=== PATIENT | male | born 1940 | race Caucasian/White ===

== ENCOUNTER 2020-11-17 15:45 | Emergency (ER) | payer OTHER ==
[~2020-11-17] VITALS: Ht 172.7 cm; Wt 74.8 kg
[2020-11-17 16:37] LABS: ABSOLUTE NEUTROPHILS 3.5 thou/uL (1.4-8.2); BASOPHILS 0.9 % (0.0-2.0); EOSINOPHILS 3.3 % (0.0-3.0); HEMATOCRIT 43.8 % (42.0-52.0); HEMOGLOBIN 14.1 gm/dL (14.0-18.0); LYMPHOCYTES 43.3 % (24.0-44.0); MCH 29.3 pg (26.0-34.0); MCHC 32.3 g/dL (28.0-37.0); MCV 90.9 fL (80.0-100.0); MONOCYTES 8.9 % (1.0-8.0); PLATELET COUNT 256 thou/uL (150-400); POLYS 43.6 % (36.0-66.0); RBC 4.82 mil/uL (4.50-6.00); RDW 14.5 % (10.5-14.5)
[2020-11-17 16:49] LABS: ALBUMIN 2.9 g/dL (3.4-5.0); CALCIUM 9.5 mg/dL (8.5-10.1); CREATININE 1.4 mg/dL (0.7-1.3); POTASSIUM 4.3 mmol/L (3.5-5.1); TOTAL BILIRUBIN 0.2 mg/dL (0.2-1.0); TOTAL PROTEIN 7.1 g/dL (6.4-8.2)
[2020-11-17 17:17] LABS: URINE BILIRUBIN NEGATIVE (Negative); URINE BLOOD 1+ (Negative); URINE CLARITY CLEAR; URINE COLOR YELLOW; URINE GLUCOSE-RANDOM* NEGATIVE (Negative); URINE KETONES NEGATIVE (Negative); URINE LEUKOCYTES-REFLEX NEGATIVE (Negative); URINE NITRITE-REFLEX NEGATIVE (Negative); URINE PROTEIN (DIPSTICK) NEGATIVE (Negative); URINE UROBILINOGEN 0.2 E.U./dl (0.2-1.0)
[2020-11-17 17:28] LABS: SQUAMOUS 4-10 Moderate /LPF (0-3)
[2020-11-17 17:31] LABS: RENAL EPITHELIAL CELLS 4-10 Moderate /LPF (None Seen)
[2020-11-17 17:32] LABS: URINE RBC 3-10 Few /HPF (0-2)
[2020-11-17 17:33] LABS: BACTERIA-REFLEX 1-9 Few /HPF (None Seen); CASTS None Seen /LPF (None Seen); CRYSTALS None Seen /LPF (None Seen); URINE WBC-REFLEX 6-15 Few /HPF (0-5)
[2020-11-17] MEDS ORDERED: BUSPIRONE HCL10 MG PO (18:16)
[2020-11-17] MEDS ORDERED: ATIVAN0.5 M1 PO (18:18)
[2020-11-17] MEDS ORDERED: TYLENOL EXTRA500 MG PO (18:19)
[2020-11-17] MEDS ORDERED: SENNA8.6 MG PO (18:19)
[2020-11-17] MEDS ORDERED: MUCINEX600 MG PO (18:19)
[2020-11-17] MEDS ORDERED: ASA81BEC PO (18:20)
[2020-11-17] MEDS ORDERED: ATENOLOL 25 MG25 M1 PO (18:20)
[2020-11-17] MEDS ORDERED: LIPITOR40 MG PO (18:20)
[2020-11-17] MEDS ORDERED: COMBIVENT INH (18:26)
[2020-11-17] MEDS ORDERED: CEFTRIAXONE40 MG/M1 IM (18:27)
[2020-11-17] MEDS ORDERED: LORAZEPAM 2MG TA2 M1 PO (18:28)
[2020-11-17 19:41] VITALS: BP 198/93
--- NOTE | 2020-11-18 07:27 | EKG ---
[address] [place] [address] ELECTROCARDIOGRAM REPORT Name: LUIS CARLOS MUÑOZD Room #: DEP Papi#: [id number] Admission: 11/17/20 Attend Phys: Discharge: 11/17/20 Date of : 38 Report #: [id number] [facility] Test Date: 2020-11-17 Test Time: 16:23:41 Pat Name: LALA MUÑOZ Department: Room: Gender: Shells Inspector: KATIA : 1940 Requested By: Kody Harman Order Number: [id number] MD: Raman Roberts Measurements Intervals [place] Rate: 61 P: 41 FL: 113 QRS: 45 QRSD: 83 T: 34 QT: 432 QTc: 435 Interpretive Statements Sinus rhythm Borderline short FL interval No previous ECG available for comparison Electronically Signed On 11-18-2020 7:27:08 CDT by Raman Roberts [email or web address] <ELECTRONICALLY SIGNED> By: Raman Roberts MD, [facility] 11/18/20 0727 1623 1623 Raman Roberts MD, FACC /EPI
== END 2020-11-17 19:48 ==
LOC: ER 15:45
PROVIDERS: Emergency Medicine
DX: R45.1 Restlessness and agitation (principal); I10 Essential (primary) hypertension; E78.5 Hyperlipidemia, unspecified; Z79.82 Long term (current) use of aspirin; Z79.899 Other long term (current) drug therapy; Z20.822 Contact with and (suspected) exposure to COVID-19

== ENCOUNTER 2020-11-17 19:58 | Inpatient (IN) | payer OTHER, MEDICARE ==
[~2020-11-17] VITALS: Ht 180.3 cm; Wt 66.8 kg
[~2020-11-17 19:58] MED LIST: ASA81BEC PO; ATENOLOL 25 MG25 M1 PO; ATIVAN0.5 M1 PO; BUSPIRONE HCL10 MG PO; CEFTRIAXONE40 MG/M1 IM; COMBIVENT INH; LIPITOR40 MG PO; LORAZEPAM 2MG TA2 M1 PO; MUCINEX600 MG PO; SENNA8.6 MG PO; TYLENOL EXTRA500 MG PO
[2020-11-17 20:23] VITALS: BP 130/75
--- NOTE | 2020-11-17 20:25 | NUR ---
ARRIVES TO FLOOR AT 2015 AN 79 YEAR OLD MALE FROM [facility]. ARRIVES TO FLOOR FROM ER VIA CART-HAD BEEN INCONTINENT OF LARGE AMOUNT URINE AND WAS COMBATIVE WITH RN AND CONVEYOR MECHANIC DURING INCONTINENT CARE-REFUSES TO ASSIST WITH TRANSFER TO BED YELLING LOUDLY "NO IM LEAVING" WEIGHT OBTAINED. VS OBTAINED AND WNL. POSITIONED FOR COMFORT IN BED AND BED EXIT ALARM INITATED. SON QUINTIN CONTACTED AND CONSENT TO TREAT OBTAINED. REFUSES OFFERS OF FOOD/FLUIDS. 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 PLACED ON [place] PRECAUTIONS. ADRYAN KOO CONTACTED AND ADMISSION ORDERS OBTAINED
--- NOTE | 2020-11-18 03:56 | NUR ---
PATIENT COMBATIVE AND SECURITY CALLED. ORDER GIVEN FOR GEODON 15MG IM. PT REFUSED PO MEDS AND THREW THEM AT NURSE. PATIENT HAS SMALL SKIN TEAR ON RIGHT FOREARM THAT WAS CLEANED AND COVERED. PATIENT WITH EXPRESSIVE APHASIA. PT KEEPS MOVING LAP RANI UP TOWARDS NECK. REMOVED LAP RANI AND CHAIR RECLINED. PT WITH LESS AGITATION. PATIENT ASSISTED TO BED AND BECAME RESTLESS AND HAD TAKEN OFF CLOTHES. LORAZEPAM 0.25MG PO AND TYLENOL 650MG PO FOR GENERALIZED DISCOMFORT CRUSHED AND PLACED IN PUDDING. PATIENT TOOK THIS WITHOUT ISSUE. HE SETTLED DOWN WITHIN AN HOUR AND BACK TO SLEEP. BED IN LOW POSITION AND BED ALARM IS ON. ROUTINE MONITORING
[2020-11-18 07:55] VITALS: BP 138/76
--- NOTE | 2020-11-18 09:23 | NUR ---
PATIENT APPROACHED WITH MORNING MEDICATIONS CRUSHED IN APPLESAUCE. ATTEMPTED SEVERAL TIMES AND PUSHED SPOON AWAY. WILL CONTINUE TO ENCOURAGE COMPLIANCE.
[2020-11-18 19:25] VITALS: BP 153/73
--- NOTE | 2020-11-19 04:48 | NUR ---
11-18-20 CARE TRANSFERRED 1900. PT AAOX1, VSS, RR EVEN AND NONLABORED ON RA. PT REMAINED CLAM AND COOPERATIVE THROUGHOUT NURSING ASSESSMENT, PT HAS DIFFICULTIES ARTICULATING THOUGHTS INTO WORDS R/T CVA. ZERO S/S OF ACUTE DISTRESS NOTED, PT WILL CONTINUE TO BE MONITOR PER [facility] PROTOCOL.
[2020-11-19 06:22] LABS: CALCIUM 9.7 mg/dL (8.5-10.1); CREATININE 1.3 mg/dL (0.7-1.3)
[2020-11-19 09:13] VITALS: BP 122/60
--- NOTE | 2020-11-19 11:20 | NUR ---
Nutrition: pt admitted from [place] with agitation, dementia. passed last year. Feeds self with left hand due to right hand contracture. PO documented as 70-80% of meals so far on unit. No weight hx. BMI WNL. Noted skin assessment pending today. Hx pressure ulcer to buttock possibly resolved but suspected active ankle wound per team meeting. Depending on stage, can offer supplements. Otherwise consider low nutrition risk.
--- NOTE | 2020-11-19 15:56 | NUR ---
YAMILE contacted pt's son Dalton and obtained hx from him about pt. He said pt's 06/2020 and since then pt has increased in his aggressive behaviors. He said that pt has been experiencing depression. He also mentioned that although pt had a stroke 21 years ago, his speech was not as difficult to understand for a long time as it is now. YAMILE sent to Dalton a [facility] welcome email to . YAMILE team will continue to follow pt during his stay on this unit.
--- NOTE | 2020-11-19 16:48 | NUR ---
0700 ASSUMED CARE OF PATIENT, PATIENT IN GENEVA CHAIR AT THAT TIME. PATIENT NOTED WITH EYES CLOSED. PATIENT ASSISTED WITH BREAKFAST. MEDICATIONS TAKEN CRUSHED IN APPLESAUCE WITHOUT DIFFICULTY. LS CLEAR, BS ACTIVE. PATIENT CONFUSED. ORIENTED TO SELF. PATIENT ASSIST X2 WITH TRANSFERS. 1500 SKIN ASSESSMENT COMPLETED PATIENT LYING IN BED PATIENT NOTED WITH COCCYX WOUND OPEN TO AIR. WOUND MEASURED 0.3 CM X 1 CM WITH WHITE TISSUE AROUND OPENING AND PINK IN THE BED OF THE WOUND. Z-GURAD APPLIED AND A 3X3 OPTIFOAM BORDERED DRESSING APPLIED. OLD SCARS NOTED TO RIGHT THIGH. SCAB TO LEFT WRIST AND RIGHT ELBOW. WOUND #2 RIGHT ANKLE 0.7 CM X0.5 CM ULCER NOTED. REDNESS AROUND THE WOUND WITH WHITE EDGES TO OPENING. OLD DRESSING NOTED WITH BROWNISH YELLOW DISCHARGE MODERATE AMT. Z-GUARD APPLIED TO WOUND AND COVERED WITH OPTIFOAM BORDERED DRESSING. BRACE TO RIGHT LEG REAPPLIED PATIENT REPOSITIONED IN BED WITH HOB ELEVATED AND FOOT OF BED ELEVATED. PATIENT RESTING IN BED. BED ALARMED: AT 1620, PATIENT AWAKE AND ATTEMPTING TO GET OUT OF BED. PATIENT TRANSFERED TO [facility] AND TO DAYROOM AT THAT TIME. PATIENT CONFUSED AND SPEAKS IN LOW VOICE, DIFFICULTY UNDERSTANDING AT TIMES. WILL CONTINUE TO OBSERVE.
[2020-11-19 19:19] VITALS: BP 147/59
--- NOTE | 2020-11-20 02:04 | NUR ---
PT ASSESSMENT COMPLETED AND VSS. MEDS GIVEN ORDERED CRUSHED IN APPLESAUSE. WELL TOLERATED. BRACE AND DRESSINGS TO R LOWER LEG IN PLACE. PT CALM AND PLEASANT THIS EVENING. PT IN CHAIR EARLY DURING SHIFT. NOW PT SLEEPING IN BED WITH ALARM ON. WILL CONTINUE TO MONITOR FREQUENTLY.
[2020-11-20 09:38] VITALS: BP 199/91
[2020-11-20 10:09] VITALS: BP 199/91
--- NOTE | 2020-11-20 13:29 | EKG ---
[address] [address] ELECTROCARDIOGRAM REPORT Name: LALA MUÑOZ Room #: [facility] ADM IN M.R.#: [id number] Admission: 11/17/20 Attend Phys: Serafin Lyn DO Discharge: Date of : 38 Report #: [id number] [facility] Test Date: 2020-11-20 Test Time: 13:22:22 Pat Name: LALA MUÑOZ Department: Room: [facility] Gender: M Visual Arts Teacher: SANA : 1940 Requested By: Cristina Haywood Order Number: [id number] MD: Raman Roberts Measurements Intervals [place] Rate: 72 P: 77 CA: 123 QRS: 15 QRSD: 82 T: 22 QT: 421 QTc: 461 Interpretive Statements Sinus rhythm Compared to ECG 11/17/2020 16:23:41 No significant changes Electronically Signed On 11-20-2020 13:29:31 CDT by Raman Roberts [email or web address] <ELECTRONICALLY SIGNED> By: Raman Roberts MD, [facility] 11/20/20 1329 1322 1322 Raman Roberts MD, FACC /EPI
--- NOTE | 2020-11-20 13:55 | NUR ---
1350 RESUMMED CARE FROM OVERNIGHT SHIFT THIS AM, PATIENT IN DAY ROOM SITTING IN GENEVA CHAIR. PATIENT ATE BREAKFAST WHEN TRYING TO GIVE PATIENT HIS MEDICATION HE SLAPPED IT OUT OF MY HAND. I CALLED DR DIAZ TO LET HER KNOW SHE TOLD ME TO TRY LATER AND TRY AGAIN. I GAVE PATIENTS HALDOL CRUSHED IN ICE CREAM AND PATIENT GOT CLONODINE PATCH 0.1 MG FOR HTN. PATIENTS ADBOMEN SOFT BOWEL SOUNDS PRESENT PATIENTS LUNGS CLEAR. PATIENT ALERT ORIENTED TO SELF ONLY PATIENT IS UNABLE TO TELL ME ABOUT SI/HI/AH/VH AT PRESENT. PATIENT HAS DEMENTIA WITH BEHAVIORS, I CHANGED PATIENTS WOUND DRESSING. WILL CONTINUE TO MONITOR PATIENT FOR SAFETY AND BEHAVIORS.
[2020-11-20 20:39] VITALS: BP 142/78
--- NOTE | 2020-11-20 22:04 | NUR ---
2203 RESUMMED CARE FROM DAY SHIFT THIS EVENING, PATIENT IS ALERT ORIENTED TO SELF. PATIENT UNABLE TO TELL ME ABOUT SI/HI/AH/VH AT PRESENT DUE TO DEMENTIA. PATIENT CHANGED AT BEGINNING OF SHIFT POSITION SWITCHED TO BED WITH LEGS SEMI FOWLERS POSITION. PATIENTS ABDOMEN SOFT BOWEL SOUNDS PRESENT PATIENTS LUNGS CLEAR. PATIENT TOOK MEDICATION CRUSHED IN APPLESAUCE, PATIENT TRIED TO CLIMB OUT OF BED. WE BROUGHT PATIENT BACK TO DAYROOM FOR CLOSE OBSERVATION, PATIENT HAS A WAFFLE CUSHION FOR COMFORT. WILL CONTINUE TO MONITOR PATIENT FOR SAFETY AND BEHAVIORS.
[2020-11-21 08:30] VITALS: BP 185/97
--- NOTE | 2020-11-21 09:19 | NUR ---
PT SITTING IN DINING ROOM. PT TOOK MEDS THIS AM WHOLE WITH PUDDING. PT SMILES AND SAYS ONE WORDS TO NURSE. PT HAS RT HAND CONTRACTED AND RT LE HAS AFO WHEN UP AND SHOES FOR AMBULATION. PT DOES FEED SELF AND TOLERATES THIN LIQUIDS.
[2020-11-21 10:11] VITALS: BP 185/97
--- NOTE | 2020-11-21 14:00 | NUR ---
YAMILE faxed updates to [facility] Sen. Chambers at [phone]. YAMILE also contacted Christine to arrange d/c. No answer. YAMILE left a msg. YAMILE team will continue to follow pt during her stay on this unit.
--- NOTE | 2020-11-21 19:26 | NUR ---
PT HAS HAD A GOOD DAY TODAY. NO BEHAVIORS NOTED FROM PT. PT HAS FED SELF WITH ASSIST WITH TRAY. PT TOOK MEDS WHOLE IN PUDDING WITHOUT ANY ISSUES. PT RESTED ON AND OFF IN GENEVA-CHAIR AND ALSO WORKED WITH THERAPY.
[2020-11-21 19:35] VITALS: BP 155/77
--- NOTE | 2020-11-22 04:50 | NUR ---
Pt. rested quietly during the night when checked on. Pt. very hesitant to take his po meds at hs. He would draw his fist up and try to knock meds away that were in pudding. After a few more trys he did take them. He has rested quietly during the night.
[2020-11-22 09:12] VITALS: BP 169/88
[2020-11-22 10:44] LABS: URINE BILIRUBIN NEGATIVE (Negative); URINE BLOOD NEGATIVE (Negative); URINE CLARITY CLEAR; URINE COLOR YELLOW; URINE GLUCOSE-RANDOM* NEGATIVE (Negative); URINE KETONES NEGATIVE (Negative); URINE LEUKOCYTES-REFLEX NEGATIVE (Negative); URINE NITRITE-REFLEX NEGATIVE (Negative); URINE PROTEIN (DIPSTICK) NEGATIVE (Negative); URINE SPECIFIC GRAVITY >= 1.030 (1.005-1.035); URINE UROBILINOGEN 0.2 E.U./dl (0.2-1.0)
[2020-11-22 11:07] VITALS: BP 169/88
[2020-11-22 12:37] LABS: ABSOLUTE NEUTROPHILS 5.7 thou/uL (1.4-8.2); BASOPHILS 0.8 % (0.0-2.0); EOSINOPHILS 3.3 % (0.0-3.0); HEMOGLOBIN 13.9 gm/dL (14.0-18.0); LYMPHOCYTES 33.9 % (24.0-44.0); MCH 29.6 pg (26.0-34.0); MCHC 32.4 g/dL (28.0-37.0); MCV 91.4 fL (80.0-100.0); MONOCYTES 8.6 % (1.0-8.0); PLATELET COUNT 286 thou/uL (150-400); POLYS 53.4 % (36.0-66.0); RDW 14.3 % (10.5-14.5); WBC 10.6 thou/uL (4.0-11.0)
--- NOTE | 2020-11-22 12:47 | NUR ---
1246 RESUMMED CARE FROM OVERNIGHT SHIFT THIS AM, PATIENT IN DAYROOM QUIET. PATIENT IS ALERT ORIENTED TO SELF PATIENT UNABLE TO TELL MED ABOUT SI/HI/AH/VH AT PRESENT. PATIENT HAD STROKE SEVERAL YEARS AGO AND HAS DEMENTIA AND HAS LOST SOME OF HIS COGNITIVE SKILLS. PATIENTS ABDOMEN SOFT BOWEL SOUNDS PRESENT PATIENTS LUNGS CLEAR. DR CONNOR CAME AND ORDERED BLADDER SCAN AND STRAIGHT CATH FOR UA/UC AND SOME BLOOD WORK. PATIENT WAS COOPERATIVE FOR THE PROCEDURE HE HAD 250 CC OF URINE IN BLADDER. PATIENT IS QUIET AND LYING IN GENEVA CHAIR WILL CONTINUE TO MONITOR PATIENT FOR SAFETY AND BEHAVIORS.
[2020-11-22 12:52] LABS: CALCIUM 9.9 mg/dL (8.5-10.1); CREATININE 1.3 mg/dL (0.7-1.3); POTASSIUM 4.1 mmol/L (3.5-5.1)
--- NOTE | 2020-11-22 13:48 | NUR ---
DURING WEEK ONE ADMISSION, LALA HAS NOT BEEN ABLE TO BE ACTIVE HE WOULD LIKE DUE TO PREVIOUS STROKE. HOWEVER PATIENT IS ABLE TO OBSERVED AND LISTEN TO ALL RECREATION THERAPY GROUPS WHEN PRESENTED TO HIM. THERE HAS BEEN 1:1 ATTEMPTS OF ENGAGEMENT FOR PATIENT TO IMPROVE ANY INTERACTION. PT DOES APPEAR TO BE CALM AND SMILES WHEN HE IS SHOWING EMOTION OF EXCITEMENT.
[2020-11-22 20:07] VITALS: BP 167/76
[2020-11-22 20:20] VITALS: BP 167/76
--- NOTE | 2020-11-23 03:00 | NUR ---
11-22-20 CARE TRANSFERRED 1899. PT AAOX1, VSS, RR EVEN AND NONLABORED ON RA. NO S/S OF PAIN AND NO SI/HI BEHAVIORS OBSERVED. PT EXPRESSIVE APHASIA, HAS BEEN CALM AND COOPERATIVE. ATE 100% HS ICE CREAM CUP. PT HAS BEEN REPOSITION PER HCP ORDERS. HEEL BOOTS HAVE NOT ARRIVED FROM C[facility]TRAL [facility], PT FEET HAVE BEEN POSITION ON PILLOW. ZERO S/S OF ACUTE DISTRESS NOTED, PT WILL CONTINUE TO BE MONITOR PER [facility] PROTOCOL.
[2020-11-23 08:21] VITALS: BP 144/68
--- NOTE | 2020-11-23 16:14 | NUR ---
0700 ASSUMED CARE OF PATIENT, PATIENT IN BED AT THAT TIME. PATIENT TO DAYROOM VIA GENEVA CHAIR X 2 ASSIST. PATIENT QUIET AND CALM. FEW BITES OF BREAKFAST WITH ASSIST. MEDICATIONS TAKEN CRUSHED IN APPLESAUCE. ATE ALL OF THE APPLESAUCE. PATIENT MUMBLES WORDS, DIFFICULTY UNDERSTANDING AT TIMES. SLEEPS OFF AND ON IN CHAIR. BLADDER SCAN COMPLETED AT 1500 WITH RESULTS OF 470 ML. 1530 PATIENT TRANSFERED TO BED X 2 ASSIST. STRAIGHT CATH DONE WITH 850ML OF SLIGHTLY DARK YELLOW URINE. PATIENT TOLERATED WELL. WOUND TO COCCYX CLEANED WITH NS AND Z-GUARD APPLIED WITH OPTIFORM BORDERED DRESSING APPLIED. WOUND TO RIGHT ANCKLE CLEANED WITH NS, Z-GUARD APPLIED AND OPTIFORM BORDERED DRESSING APPLIED. PATIENT POSITIONED TO LEFT SIDE. PATIENT RESTING WITH EYES CLOSED. BED ALARM ON, SIDE RAILS UP. WILL CONTINUE TO OBSERVE.
[2020-11-23 19:29] VITALS: BP 132/85
[2020-11-23 20:20] VITALS: BP 132/85
--- NOTE | 2020-11-24 02:20 | NUR ---
PATIENT WAS SITTING UP IN DINING ROOM IN GENEVA CHAIR WITH CHAIR ALARM UNDER HIM UP TO TIME HE WENT TO BED. HE TOOK HIS MEDS CRUSHED IN PUDDING. PATIENT DID DRINK ICE WATER OF 240CC. HE HAS RIGHT SIDE HEMIPARESIS. RIGHT HAND STAYES CLUTCHED POSITION. PATIENT WITH C/O PAIN IN RIGHT KNEE THIS EVENING. TYLENOL 650MG PO GIVEN WITH HS MEDS. PATIENT IS ASSIST X 2. HE HAS BEEN CALM AND COOPERATIVE. HE IS INCONTINENT. PATIENT IS BLADDER SCANNED Q 8 HOURS. PT SCANNED AT 2300 AND HAD 209CC IN BLADDER. HE WAS NOT CATHED AT THIS TIME D/T NOT TO CATH UNLESS ABOVE 300CC. PATIENT WAS ABLE TO USE SPOON TO FEED HIMSELF PUDDING TONIGHT. I HAD TO PUT THE PUDDING ON THE SPOON AND THEN PATIENT WOULD TAKE SPOON AND FEED SELF. DRESSING ON LEFT ANKLE DRY AND INTACT. BARRIER CREAM WITH INCONTINENCE CARES. PATIENT TO BED AT 2300. BED IN LOW POSITION AND BED ALARM ON. HE SEEMS TO BE A/0X2-3. HE DOES HAVE EXPRESSIVE APHASIA. ROUTINE ROUNDS TO ASSESS SAFETY AND STATUS OF PATIENT.
--- NOTE | 2020-11-24 05:00 | NUR ---
PATIENT WAS DRESSED AND BROUGHT TO DINING ROOM SINCE HE WAS RESTLESS AND READY TO GET UP FOR THE DAY. PATIENT GIVEN 240CC OF ICE WATER AND IS SITTING ON CHAIR ALARM IN GENEVA CHAIR WITH FEET UP. BRACE PLACED ON RIGHT LEG. HE IS CALM AND COOPERATIVE. LAB HERE TO DRAW BLOOD. CONTINUING TO MONITOR. NO SIGNS OF DISTRESS. PT RELAXED AND SMILING.
[2020-11-24 05:51] LABS: CALCIUM 9.5 mg/dL (8.5-10.1); CREATININE 1.2 mg/dL (0.7-1.3); POTASSIUM 3.8 mmol/L (3.5-5.1)
--- NOTE | 2020-11-24 06:28 | NUR ---
PATIENT'S ABDOMEN SOFT AND NOT DISTENDED OVER BLADDER. BLADDER SCANNED PATIENT AT 0530. AT THAT TIME 290CC SHOWING ON SCAN. PT STATES HE DOESN'T FEEL FULL OR UNCOMFORTABLE. PT RELAXED AND SMILING. PATIENT GIVEN MORE WATER TO DRINK. PATIENT HAS HAD 300CC SO FAR SINCE GETTING UP THIS MORNING. CONTINUING TO MONITOR.
--- NOTE | 2020-11-24 12:52 | NUR ---
YAMILE contacted [facility] and spoke to Christine. She said that she will take pt back but Tuesday is not a good day due to her having several admissions. There are 3 d/cs for Wed on [facility] so Christine and YAMILE agreed upon a d/c at 10:30 am. She said family will need to transport. She also said she does not need a covid test. YAMILE contacted Dalton and provided an update. He confirmed he will machine pecan picker on 11/27 @10:30am. YAMILE team will continue to follow pt during his stay on this unit.
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
[2020-11-24] MEDS ORDERED: HALOPERIDOL 1 MG1 MG PO (18:40)
[2020-11-24] MEDS ORDERED: FLOMAX0.4 MG PO (18:40)
--- NOTE | 2020-11-24 19:51 | NUR ---
LALA ALERT AND CALM, ORIENTED TO SELF. PATIENT NOTED AMB WITH PT X 1 ASSIST. BLADDER SCAN AT 1130AM WITH 331 ML. AT 1300 STRAIGHT CATH COMPLETED WITH 700 ML OF YELOW URINE. PATIENT TOLERATED WELL. PATIENT GIVEN FLUIDS THROUGHOUT THE DAY. PATIENT IN BED POSITIONED TO RIGHT SIDE WITH BED ALARM ON.
[2020-11-24 19:53] VITALS: BP 123/69
[2020-11-24 23:59] VITALS: BP 123/69
--- NOTE | 2020-11-25 03:04 | NUR ---
PATIENT SAT UP IN DINING ROOM IN GENEVA CHAIR THIS EVENING BEFORE GOING TO BED. HE HAD HS SNACK AND SMALL CUP OF WATER. HE APPEARED TIRED AND NODDED YES WHEN ASKED. NO SIGNS OF PAIN AND DECLINES WHEN ASKED. PATIENT ASSISTED TO BED BETWEEN 2100 AND 2200. PATIENT BLADDER SCANNED AT 2130 AND SHOWED 290 URINE PRESENT IN BLADDER. DID NOT CATH AT THIS TIME. PATIENT BECAME RESTLESS AND TRYING TO GET OUT OF BED AT 0245. PATIENT WAS BLADDER SCANNED AGAIN BECAUSE HE HAD NOT VOIDED AND WAS RESTLESS. SCAN SHOWED 439CC URINE PRESENT. PATIENT WAS CATHERIZED WITH 15FR CATHETER AFTER CLEAN PROTOCOL FOLLOWED AND OBTAINED 450CC URINE RESIDUAL. PT REPOSITIONED. HE HAD TAKEN OFF HEEL PROTECTOR OF RIGHT FOOT AND MOST OF HIS CLOTHING. PATIENT IS KNOWN TO TAKE HIS CLOTHES OFF AT NIGHT WHEN HE SLEEPS. WENT AND PULLED LORAZEPAM 0.25MG PO TO GIVE IN PUDDING TO HELP HIS ANXIETY AND GO BACK TO SLEEP BUT WHEN I WENT IN ROOM, PATIENT HAD ALREADY FALLEN BACK TO SLEEP. LORAZEPAM 0.25MG PO NOT GIVEN AT THIS TIME. BED IN LOW POSITION AND BED ALARM IS ON. SIDERAILS UP FOR SAFETY.
[2020-11-25 07:30] VITALS: BP 143/103
--- NOTE | 2020-11-25 10:02 | NUR ---
Alert and appears to understand. Only able to say few words and responds appropriately to questions with yes and no. Denies SI/HI. Weak on right side. Compliant with meds. Breath sounds clear. Reg HR auscultated. Color pink with brisk capillary refill and palpable peripheral pulses. No edema. Brief dry. Active bowel sounds over soft, flat abdomen. Wound per R malleous cleaned with NS, scant amt greenish drainage, dressed with Xeroform and bordered foam drsg. Wound per L buttock cleaned with NS, no drainage, Zguard applied, no dressing per order. Placed in gerichair with lap zana and chair alarm. Currently sitting in day room with peers watching TV, no s/o distress.
[2020-11-25 11:49] VITALS: BP 104/55
--- NOTE | 2020-11-25 15:41 | NUR ---
YAMILE received a call from staff with [facility] requesting an assessment for pt to determine if he is still appropiate for AL. YAMILE arranged an assessment with Christine and she talked with pt on the hospital tablet. She determined that pt would benefit from a stay in their skilled unit. She said SW will have to begin anew with pt's discharge as she does not have access to the skilled side. YAMILE contacted [facility] rehab several times and did not receive an answer. YAMILE contacted Jermaine Alexis, and explained the situation. She said that there is no need to begin anew and that the AL facility just needed to forward the notes to the skilled side that YAMILE faxed yesterday. She said she will contact skilled and be in touch with YAMILE. SW team will continue to follow pt during his stay on this unit.
[2020-11-25 19:02] VITALS: BP 157/74
--- NOTE | 2020-11-26 03:49 | NUR ---
ASSESSMENT: PT WAS SITTING IN GENEVA CHAIR IN DAY SPACE AREA AT THE CHANGE OF SHIFT. IT WAS REPORTED THAT PT SLEPT MOST OF DAY. COMPLIANT WITH TAKING MEDS CRUSED. LIKES TO FEED HIMSELF. POST TAKING MEDS, THIS RN ASSISTED PT IN EATING THE ENTIRE JELLO. DID DRINK SEVERAL CUPS OF H20. BLADDER SCANNED AT 228, BRIEF DRY THAT TIME OF 0000. PT WAS TAKEN TO BED IN WHICH HE ONLY SLEPT FOR 45 MINS BEFORE WANTING TO GET BACK IN GENEVA CHAIR. PT IS ABLE TO LET MOST OF HIS NEED BE KNOWN, DOES HAVE DIFFICULTY WITH SPEAKING. SLURRED SPEECH R/T CVA. PT IS CURRENTLY SITTING IN DAY SPACE DOZING OFF FROM TIME TO TIME BUT REFUSES TO GO TO BED. RIGHT LEG BRACE IS ON. NO BM. DRESSING C/D/I. WILL CONTINUE TO MONITOR.
--- NOTE | 2020-11-26 09:03 | NUR ---
Nutrition f/u: Wt on 11/23 down 8 lb from admit, recommend obtain current wt. Intake 75% or more avg recent meals. Limited records for supplement intake, but nsg reported that he has taken them well recently. Stage III wounds on rt lateral ankle and coccyx noted as improved. No recent albumin, BUN 41. Continue at low nutrition risk, per notes, appears plan is for discharge soon.
[2020-11-26 09:53] VITALS: BP 128/59
--- NOTE | 2020-11-26 11:40 | NUR ---
Alert and orientated, appears to follow conversations. Aphasic but is able to answer questions by nodding and saying "no". Denies SI/HI. Breath sounds clear. Reg HR auscultated. Color pink with brisk capillary refill and palpable peripheral pulses. No edema. Bladder scan: 268. Straight cath done, retrieved 300 cc yellow urine. Active bowel sounds over soft, flat abdomen. Wounds on coccyx and R ankle photographed, cleaned and dressed. Brace placed on R lower leg. Sitting in day room with peers participating in group and watching TV.
--- NOTE | 2020-11-26 14:46 | NUR ---
YAMILE spoke with Aurelio with [facility]; they can accept pt. Destinee said pt has to come today because tomorrow he may not have a bed as they are expected to have 5 admits. YAMILE spoke with Nursing Pole Inspector and pt's nurse. YAMILE also relayed this information to Dr. Haywood. Destinee and Bernice said they can accept pt's current covid results dated for 11/17. Destinee said TS will transport pt; YAMILE and she agreed upon a 1600 d/c. SW team will continue to follow pt during his stay on this unit.
[2020-11-26] MEDS ORDERED: FINASTERIDE5 MG PO (14:49)
[2020-11-26] MEDS ORDERED: CLONIDINE1 EACH TRANSDERM (14:49)
--- NOTE | 2020-11-26 15:13 | NUR ---
YAMILE D/C NOTE YAMILE faxed discharge documents to [facility]. No other needs to address at this time.
== END 2020-11-26 16:11 | DRG 884 ==
LOC: SBH 19:58
PROVIDERS: Internal Medicine; Psychiatry & Neurology Psychiatry; ADMIT Psychiatry & Neurology Psychiatry; ATTEND Psychiatry & Neurology Psychiatry
DX: F03.91 Unspecified dementia, unspecified severity, with behavioral disturbance (principal); L89.153 Pressure ulcer of sacral region, stage 3; L89.513 Pressure ulcer of right ankle, stage 3; I69.351 Hemiplegia and hemiparesis following cerebral infarction affecting right dominant side; E44.0 Moderate protein-calorie malnutrition; I10 Essential (primary) hypertension; E78.5 Hyperlipidemia, unspecified; R33.9 Retention of urine, unspecified; F41.9 Anxiety disorder, unspecified; D86.0 Sarcoidosis of lung; Z66 Do not resuscitate; I69.320 Aphasia following cerebral infarction; Z87.891 Personal history of nicotine dependence; Z68.20 Body mass index [BMI] 20.0-20.9, adult
CPT/HCPCS: 10880